=== PATIENT | male | born 1995 | race Caucasian/White ===

== ENCOUNTER 2018-10-15 07:22 | Emergency (ER) | payer OTHER ==
[2018-10-15 09:16] VITALS: BP 129/64
--- NOTE | 2018-10-15 09:34 | ED ---
Lower Extremity - HPI Summary HPI Summary: Patient is a 22-year-old male presenting to the ED with right ankle injury. He states approximately 1 hour [employer]. He had a large amount of sheet rock fall onto the ankle. He denies twisting the ankle, but endorses a crush injury. Patient denies any other symptoms. Denies any numbness or tingling. Denies any swelling or ecchymosis. Denies any erythema or abrasions. No signs of trauma otherwise. - History of Current Complaint Chief Complaint: EDExtremityLower Stated Complaint: RT ANKLE PAIN PER PT Time Seen by Provider: 10/15/18 07:32 Hx Obtained From: Patient Mechanism Of Injury: Blunt Trauma Onset of Pain: Minutes Onset/Duration: Minutes Severity Initially: Moderate Severity Currently: Moderate Pain Intensity: 4 Pain Scale Used: 0-10 Numeric Timing: Constant Location: Is Discrete @ - right lateral and medial ankle Character Of Pain: Aching Associated Signs And Symptoms: Negative: Swelling, Redness, Bruising, Weakness, Dizziness Aggravating Factor(s): Standing, Ambulation Alleviating Factor(s): Rest Able to Bear Weight: Yes - Allergies/Home Medications Allergies/Adverse Reactions: Allergies Allergy/AdvReac Type Severity Reaction Status Date / Time sulfamethoxazole Allergy Unknown Verified 10/15/18 07:29 [From Bactrim] Reaction Details trimethoprim [From Bactrim] Allergy Unknown Verified 10/15/18 07:29 Reaction Details Home Medications: Home Medications NK [No Home Medications Reported] 10/15/18 [History Confirmed 10/15/18] PMH/Surg Hx/FS Hx/Imm Hx Previously Healthy: Yes - Immunization History Hx Pertussis Vaccination: No Immunizations Up to Date: Yes Infectious Disease History: No Infectious Disease History: Denies: Traveled Outside the [place] in Last 30 Days - Social History Occupation: Employed Full-time Lives: With Family Alcohol Use: Weekly Hx Substance Use: Yes Substance Use Type: Reports: Marijuana Hx Tobacco Use: Yes Smoking Status (MU): Heavy Every Day Tobacco Smoker Review of Systems Constitutional: Negative Negative: Fever, Chills, Fatigue, Skin Diaphoresis Negative: Epistaxis, Dental Pain Negative: Palpitations, Chest Pain Negative: Cough Positive: Arthralgia - medial and lateral R ankle. Negative: Myalgia Skin: Negative Neurological: Negative All Other Systems Reviewed And Are Negative: Yes Physical Exam Triage Information Reviewed: Yes Vital Signs On Initial Exam: Initial Vitals Temp Pulse Resp BP Pulse Ox 97.1 F 54 16 130/67 100 10/15/18 07:25 10/15/18 07:25 10/15/18 07:25 10/15/18 07:25 10/15/18 07:25 Vital Signs Reviewed: Yes Appearance: Positive: Well-Appearing, Well-Nourished Skin: Positive: Skin Color Reflects Adequate Perfusion Head/Face: Positive: Normal Head/Face Inspection Eyes: Positive: EOMI, Conjunctiva Clear Neck: Positive: Supple, No Lymphadenopathy Respiratory/Lung Sounds: Positive: Clear to Auscultation Cardiovascular: Positive: Pulses are Symmetrical in both Upper and Lower Extremities Musculoskeletal: Positive: Pain @ - right medial and lateral ankle pain Neurological: Positive: Speech Normal Psychiatric: Positive: Affect/Mood Appropriate AVPU Assessment: Alert Diagnostics - Vital Signs Vital Signs Temp Pulse Resp BP Pulse Ox 10/15/18 09:15 98.6 F 75 16 129/64 98 10/15/18 07:25 97.1 F 54 16 130/67 100 - Laboratory Lab Statement: Any lab studies that have been ordered have been reviewed, and results considered in the medical decision making process. Lower Extremity Course/Dx - Course Course Of Treatment: During the course of treatment the patient is evaluated for right ankle injury. There is a minimally displaced fracture of the medial malleolus with articular extension. Pulses +2 intact bilaterally. No numbness or tingling felt throughout. Denies any other pain or injuries. Pain is currently rated a 1/10 and diffusely throughout the bilateral sides of the ankle. Plaster posterior walking with sugar tong placed. He is requesting a disc of his x-rays will follow-up with an orthopedic physician in [place]. He is given crutches. - Diagnoses Differential Diagnosis/HQI/PQRI: Positive: Sprain, Strain Provider Diagnoses: Medial malleolar fracture Discharge - Sign-Out/Discharge Documenting (check all that apply): Patient Departure Patient Received Moderate/Deep Sedation with Procedure: No - Discharge Plan Condition: Stable Disposition: HOME Patient Education Materials: Ankle Fracture (ED) Referrals: Jamie Lobo MD [Primary Care Provider] - Additional Instructions: Please follow up with orthopedic physician Call today for an appt - Billing Disposition and Condition Condition: STABLE Disposition: Home
== END 2018-10-15 09:15 | disposition home or self-care (01) ==
LOC: ED 07:22
DX: S82.51XA Displaced fracture of medial malleolus of right tibia, initial encounter for closed fracture (principal); W22.8XXA Striking against or struck by other objects, initial encounter; Y92.9 Unspecified place or not applicable; Y99.0 Civilian activity done for income or pay; Z88.2 Allergy status to sulfonamides; F17.200 Nicotine dependence, unspecified, uncomplicated
CPT/HCPCS: 99282